=== PATIENT | female | born 1995 | race Hispanic/Latino ===

== ENCOUNTER 2020-09-12 12:33 | Outpatient (CLI) | payer OTHER ==
[2020-09-12 21:46] LABS: SARS-CoV-2 PCR by NAA Not Detected (NotDetected)
== END 2020-09-12 12:34 | disposition home or self-care (01) ==
LOC: CSHLAB 12:33
PROVIDERS: ATTEND Obstetrics & Gynecology
DX: Z20.822 Contact with and (suspected) exposure to COVID-19 (principal)
CPT/HCPCS: 87635; U0003; U0005

== ENCOUNTER 2020-09-13 19:30 | Inpatient (IN) | payer OTHER ==
[~2020-09-13 19:30] MED LIST: Acetaminophen 500 MG TAB PO PRN; Butorphanol Tartrate 1 MG/ML VIAL SLOW IVP PRN; Carboprost 250 MCG/ML AMP IM PRN; Diphenoxylate HCl/Atropine Tablet PO PRN; Docusate 100 MG CAP PO PRN; HYDROcodone/Acetaminophen 5/325 mg Tablet PO PRN; Ibuprofen 800 MG TAB PO PRN; Lidocaine 1% (PF) 30 ML VIAL SC PRN; Misoprostol 200 MCG TAB PR PRN; NS w/ Oxytocin 30 units 500 ML IV SCH; NS w/ Oxytocin 30 units 500 ML IVPB SCH; Ondansetron PF 4 MG/2 ML Vial IVP PRN; Promethazine HCl 25 MG/ML VIAL IM PRN; hydrALAZINE 20 MG/ML VIAL SLOW IVP PRN
[2020-09-13] MEDS: Lactated Ringer's 1,000 ML IV SCH (21:16)
[2020-09-13] MEDS: Misoprostol 100 MCG TAB VAG SCH (21:16)
[2020-09-13 21:18] VITALS: BMI 33.7
[2020-09-13 21:42] LABS: Hemoglobin 12.6 g/dL (12.0-15.5); Mean Corpuscular Hemoglobin 32.8 pg (27.0-33.0); Mean Corpuscular Volume 91.1 fl (81.6-98.3); Mean Platelet Volume 10.1 fl (7.4-10.4); Platelet Count 203 10x3/uL (150-450); RBC Distribution Width 13.8 % (11.5-14.5); Red Blood Cell (RBC) Count 3.84 10x6/uL (3.90-5.03); White Blood Cell (WBC) Count 10.1 10x3/uL (3.5-10.5)
[2020-09-13 22:14] LABS: Hep B Surf Ag Non-Reactive S/CO (NonReactive); Syphilis Antibody Nonreactive (Nonreactive); Syphilis Antibody Index 0.02 S/CO (<1.00 Non-Reactive)
[2020-09-13 22:43] LABS: HBSAg Index 0.17 S/CO (0-0.99)
[2020-09-14] MEDS: Misoprostol 100 MCG TAB VAG SCH (01:42)
[2020-09-14] MEDS ORDERED: Fentanyl 4 mcg/Bup 0.1% Cadd 100 ML ONE (10:48)
[2020-09-14] MEDS ORDERED: Lactated Ringer's 500 ML IV PRN (11:02)
[2020-09-14] MEDS ORDERED: Eucerin (Mineral Oil/Petrolatum,White) 30 gm Jar TOP PRN (11:02)
[2020-09-14] MEDS ORDERED: Promethazine HCl 25 MG/ML VIAL IM PRN ×2 (11:02→21:08)
[2020-09-14] MEDS ORDERED: diphenhydrAMINE 50 MG/ML VIAL IVP PRN (11:02)
[2020-09-14] MEDS ORDERED: Acetaminophen 325 MG TAB PO PRN (11:02)
[2020-09-14] MEDS ORDERED: Ondansetron PF 4 MG/2 ML Vial IVP PRN ×2 (11:02→21:08)
[2020-09-14] MEDS ORDERED: Naloxone HCl 0.4 mg/ml Vial IVP PRN ×2 (11:02)
[2020-09-14] MEDS ORDERED: ePHEDrine 50 MG/ML VIAL SLOW IVP PRN (11:02)
[2020-09-14] MEDS ORDERED: Communication Order-Pharmacy FS SCH (11:15)
[2020-09-14] MEDS ORDERED: Fentanyl 4 mcg/Bupivacaine 0.1% Cassette 100 ML EPIDURAL SCH (11:15)
[2020-09-14] MEDS: Lactated Ringer's 1,000 ML IV SCH (11:20)
[2020-09-14] MEDS: NS w/ Oxytocin 30 units 500 ML IV SCH ×2 (12:04→18:49)
[2020-09-14] MEDS ORDERED: HYDROcodone/Acetaminophen 5/325 mg Tablet PO PRN ×2 (21:08)
[2020-09-14] MEDS ORDERED: NS w/ Oxytocin 30 units 500 ML IV SCH (21:08)
[2020-09-14] MEDS ORDERED: Bisacodyl 10 MG SUPP PR PRN (21:08)
[2020-09-14] MEDS ORDERED: Lanolin Ointment 7 GM TUBE TOP PRN (21:08)
[2020-09-14] MEDS ORDERED: Benzocaine-Menthol 82.5 ML CAN TOP PRN (21:08)
[2020-09-14] MEDS ORDERED: Zolpidem Tartrate 5 MG TAB PO PRN (21:08)
[2020-09-14] MEDS ORDERED: diphenhydrAMINE 25 MG CAP PO PRN (21:08)
[2020-09-14] MEDS ORDERED: Misoprostol 200 MCG TAB VAG PRN (21:08)
[2020-09-14] MEDS ORDERED: Preparation H Ointment 28 GM TUBE PR PRN (21:08)
[2020-09-14] MEDS ORDERED: Milk Of Magnesia 30 ML UDCUP PO PRN (21:08)
[2020-09-14] MEDS ORDERED: hydrALAZINE 20 MG/ML VIAL SLOW IVP PRN (21:08)
[2020-09-14] MEDS ORDERED: Docusate Calcium (SURFAK) 240 MG CAP PO SCH (21:45)
[2020-09-14] MEDS: Ibuprofen 800 MG TAB PO SCH (22:00)
[2020-09-15] MEDS: Ibuprofen 800 MG TAB PO SCH ×2 (06:36→15:12)
[2020-09-15 07:55] LABS: Hemoglobin 13.1 g/dL (12.0-15.5); Mean Corpuscular HGB CONC 35.5 g/dL (32.0-36.0); Mean Corpuscular Hemoglobin 33.2 pg (27.0-33.0); Mean Corpuscular Volume 93.4 fl (81.6-98.3); Mean Platelet Volume 10.1 fl (7.4-10.4); Platelet Count 183 10x3/uL (150-450); RBC Distribution Width 13.9 % (11.5-14.5); Red Blood Cell (RBC) Count 3.95 10x6/uL (3.90-5.03); White Blood Cell (WBC) Count 11.3 10x3/uL (3.5-10.5)
[2020-09-15] MEDS: Ferrous Sulfate 325 MG TAB PO SCH ×2 (08:50→18:09)
[2020-09-15] MEDS ORDERED: Varicella virus, LIVE 0.5 ML VIAL SC ONE (09:00)
[2020-09-15] MEDS ORDERED: Measles/Mumps/Rubella 10 MCG/0.5 ML VIAL SC ONE (09:00)
[2020-09-15] MEDS ORDERED: Adacel (T-DAP) 0.5 ML SYRINGE IM ONE (09:00)
[2020-09-15] MEDS ORDERED: Docusate Calcium (SURFAK) 240 MG CAP PO SCH (09:00)
[2020-09-15] MEDS ORDERED: Sodium Chloride 0.9% (PF) 10 ML VIAL ONE (14:11)
[2020-09-15] MEDS ORDERED: Bupivacaine 0.25% HCL 30 ML VIAL ONE (14:11)
[2020-09-15 20:46] VITALS: BP 124/76; TEMP 98
== END 2020-09-15 20:20 | disposition home or self-care (01) | DRG 807 ==
LOC: CSHLD 20:05 → CSHPP 09-14 20:40
PROVIDERS: ADMIT Obstetrics & Gynecology; ATTEND Obstetrics & Gynecology
PROC: 10E0XZZ Delivery of Products of Conception, External Approach (ICD-10-PCS; principal; 2020-09-13)
PROC: 4A0HXCZ Measurement of Products of Conception, Cardiac Rate, External Approach (ICD-10-PCS; 2020-09-13)
DX: O13.4 Gestational [pregnancy-induced] hypertension without significant proteinuria, complicating childbirth (principal); Z37.0 Single live birth; Z3A.37 37 weeks gestation of pregnancy
CPT/HCPCS: 36415; 51702; 85027; 86780; 86850; 86900; 86901; 87340; 90715; J2590; S0020

== ENCOUNTER 2021-07-28 18:07 | Observation (INO) | payer OTHER ==
[2021-07-28 19:04] VITALS: BMI 34.4
[2021-07-28] MEDS ORDERED: hydrALAZINE 20 MG/ML VIAL SLOW IVP PRN (19:57)
[2021-07-28] MEDS ORDERED: Lactated Ringer's 1,000 ML IV SCH (20:00)
[2021-07-28] MEDS ORDERED: Acetaminophen 500 MG TAB PO SCH (20:00)
[2021-07-28 20:37] LABS: #Monocytes 0.6 10x3/uL (0.0-1.1); %Basophils 0.1 % (0.0-2.0); %Eosinophils 0.1 % (0.0-6.0); %Lymphocytes 8.8 % (18.0-47.0); %Monocytes 7.9 % (0.0-10.0); %Neutrophils 82.7 % (40.0-75.0); Hemoglobin 12.9 g/dL (12.0-15.5); Mean Corpuscular HGB CONC 35.4 g/dL (32.0-36.0); Mean Corpuscular Hemoglobin 32.7 pg (27.0-33.0); Mean Corpuscular Volume 92.4 fl (81.6-98.3); Mean Platelet Volume 9.5 fl (7.4-10.4); Platelet Count 167 10x3/uL (150-450); RBC Distribution Width 15.2 % (11.5-14.5); Red Blood Cell (RBC) Count 3.94 10x6/uL (3.90-5.03); White Blood Cell (WBC) Count 7.3 10x3/uL (3.5-10.5)
[2021-07-28 20:43] LABS: Bilirubin Neg (Negative); Blood, Urine Negative (Negative); Clarity Clear (Clear); Glucose, Urine (Dipstick) Normal (Negative); Ketone, Urine Negative (Negative); Leukocyte Negative (Negative); Nitrite Negative (Negative); Protein, Urine (Dipstick) Negative (Neg-Trace)
[2021-07-28 20:45] LABS: Urine Culture Reflex No No
[2021-07-28 20:48] LABS: Bacteria/HPF Rare-Few HPF (None Seen); RBC/HPF 0-3 HPF (0-3); Squamous Epithelial 0-3 HPF (0-3); WBC/HPF 0-3 HPF (0-3)
[2021-07-28 20:50] LABS: SARS-CoV-2 NAA Rapid Test Not Detected (NotDetected)
[2021-07-28 20:51] LABS: ALT (SGPT) 48 U/L (8-55); AST (SGOT) 42 U/L (5-34); Albumin 3.3 g/dL (3.5-5.0); Alkaline Phosphatase 132 U/L (40-110); Anion Gap 15 mmol/L (10-20); BUN (Urea Nitrogen) 5 mg/dL (7.0-18.7); Bilirubin, Total 1.2 mg/dL (0.2-1.2); Calc. Creatinine Clearance 196 mL/min (70-130); Carbon Dioxide 23 mmol/L (22-29); Chloride 102 mmol/L (98-107); Globulin 2.8 g/dL (2.4-3.5); Glucose 89 mg/dL (70-105); Potassium 3.6 mmol/L (3.5-5.1); Protein, Total 6.1 g/dL (6.0-8.3); Sodium 136 mmol/L (136-145)
[2021-07-28] MEDS ORDERED: Loperamide HCl 2 MG CAP PO PRN (21:41)
[2021-07-28] MEDS ORDERED: Ondansetron ODT 4 MG TAB PO PRN (21:41)
[2021-07-28] MEDS: Lactated Ringer's 1,000 ML IV SCH (23:25)
[2021-07-29] MEDS: Lactated Ringer's 1,000 ML IV SCH (06:11)
[2021-07-29 12:26] VITALS: BP 112/68; TEMP 98.7
== END 2021-07-29 12:55 | disposition home health service (06) ==
LOC: CSHLD/OP 18:07 → CSHANTE 22:52
PROVIDERS: ADMIT Student in an Organized Health Care Education/Training Program; ATTEND Student in an Organized Health Care Education/Training Program
DX: O99.613 Diseases of the digestive system complicating pregnancy, third trimester (principal); K52.9 Noninfective gastroenteritis and colitis, unspecified; O99.283 Endocrine, nutritional and metabolic diseases complicating pregnancy, third trimester; E86.0 Dehydration; O99.891 Other specified diseases and conditions complicating pregnancy; M54.9 Dorsalgia, unspecified; O36.8330 Maternal care for abnormalities of the fetal heart rate or rhythm, third trimester, not applicable or unspecified; Z3A.37 37 weeks gestation of pregnancy; Z79.82 Long term (current) use of aspirin; Z20.822 Contact with and (suspected) exposure to COVID-19
CPT/HCPCS: 80053; 81001; 85025; 87081; 87430; 99285; J7120

== ENCOUNTER 2021-08-03 05:30 | Inpatient (IN) | payer OTHER ==
[2021-08-03 06:11] VITALS: BMI 32.9
[2021-08-03] MEDS ORDERED: Bupivacaine 0.25% HCL 30 ML VIAL ONE (08:00)
[2021-08-03] MEDS ORDERED: hydrALAZINE 20 MG/ML VIAL SLOW IVP PRN ×2 (08:54→19:46)
[2021-08-03] MEDS ORDERED: Diphenoxylate HCl/Atropine Tablet PO PRN ×2 (08:54)
[2021-08-03] MEDS ORDERED: Ibuprofen 800 MG TAB PO PRN (08:54)
[2021-08-03] MEDS ORDERED: Promethazine HCl 25 MG/ML VIAL IM PRN ×2 (08:54→14:37)
[2021-08-03] MEDS ORDERED: Methylergonovine 0.2 MG/ML VIAL IM PRN (08:54)
[2021-08-03] MEDS ORDERED: Lidocaine 1% (PF) 30 ML VIAL SC PRN (08:54)
[2021-08-03] MEDS ORDERED: Carboprost 250 MCG/ML AMP IM PRN (08:54)
[2021-08-03] MEDS ORDERED: Misoprostol 200 MCG TAB PR PRN (08:54)
[2021-08-03] MEDS ORDERED: Ondansetron PF 4 MG/2 ML Vial IVP PRN ×3 (08:54→19:46)
[2021-08-03] MEDS ORDERED: HYDROcodone/Acetaminophen 5/325 mg Tablet PO PRN ×4 (08:54→19:46)
[2021-08-03] MEDS ORDERED: Butorphanol Tartrate 1 MG/ML VIAL SLOW IVP PRN (08:54)
[2021-08-03] MEDS ORDERED: NS w/ Oxytocin 30 units 500 ML IV SCH ×3 (09:00→19:46)
[2021-08-03 09:29] LABS: Mean Corpuscular HGB CONC 36.6 g/dL (32.0-36.0); Mean Corpuscular Hemoglobin 32.7 pg (27.0-33.0); Mean Corpuscular Volume 89.5 fl (81.6-98.3); Platelet Count 175 10x3/uL (150-450); RBC Distribution Width 14.1 % (11.5-14.5); Red Blood Cell (RBC) Count 4.28 10x6/uL (3.90-5.03); White Blood Cell (WBC) Count 5.8 10x3/uL (3.5-10.5)
[2021-08-03 09:47] LABS: Hep B Surf Ag Non-Reactive S/CO (NonReactive); Syphilis Antibody Nonreactive (Nonreactive); Syphilis Antibody Index 0.04 S/CO (<1.00 Non-Reactive)
[2021-08-03 09:58] LABS: HBSAg Index 0.21 S/CO (0-0.99)
[2021-08-03] MEDS ORDERED: Fentanyl 2 mcg/Bup 0.1% Cadd 100 ML ONE (14:03)
[2021-08-03] MEDS ORDERED: ePHEDrine Sulfate 50 MG/10 ML VIAL SLOW IVP PRN (14:37)
[2021-08-03] MEDS ORDERED: Lactated Ringer's 500 ML IV PRN (14:37)
[2021-08-03] MEDS ORDERED: Naloxone HCl 0.4 mg/ml Vial IVP PRN ×2 (14:37)
[2021-08-03] MEDS ORDERED: diphenhydrAMINE 50 MG/ML VIAL IVP PRN (14:37)
[2021-08-03] MEDS ORDERED: Acetaminophen 325 MG TAB PO PRN (14:37)
[2021-08-03] MEDS ORDERED: Hydrocerin (Eucerin) Cream 120 gm Jar TOP PRN (14:37)
[2021-08-03] MEDS ORDERED: Fentanyl 2 mcg/Bupivacaine 0.1% Cassette 100 ML EPIDURAL SCH (14:45)
[2021-08-03] MEDS ORDERED: Communication Order-Pharmacy FS SCH (14:45)
[2021-08-03] MEDS ORDERED: Lanolin Ointment 7 GM TUBE TOP PRN (19:46)
[2021-08-03] MEDS ORDERED: Boostrix 0.5 ML (Tdap) VIAL IM ONE (19:46)
[2021-08-03] MEDS ORDERED: Misoprostol 200 MCG TAB VAG PRN (19:46)
[2021-08-03] MEDS ORDERED: Zolpidem Tartrate 5 MG TAB PO PRN (19:46)
[2021-08-03] MEDS ORDERED: Milk Of Magnesia 30 ML UDCUP PO PRN (19:46)
[2021-08-03] MEDS ORDERED: Bisacodyl 10 MG SUPP PR PRN (19:46)
[2021-08-03] MEDS ORDERED: Benzocaine-Menthol 82.5 ML CAN TOP PRN (19:46)
[2021-08-03] MEDS ORDERED: Ferrous Sulfate 325 MG TAB PO SCH (20:00)
[2021-08-03] MEDS: Docusate 100 MG CAP PO SCH (20:46)
[2021-08-03] MEDS: Ibuprofen 800 MG TAB PO SCH (20:46)
[2021-08-04] MEDS: Ibuprofen 800 MG TAB PO SCH ×2 (05:23→13:58)
[2021-08-04] MEDS: Ferrous Sulfate 325 MG TAB PO SCH ×2 (08:48→17:16)
[2021-08-04] MEDS: Docusate 100 MG CAP PO SCH (08:53)
[2021-08-04] MEDS ORDERED: Prenatal Vitamin 1 TAB PO SCH (09:00)
[2021-08-04 15:26] VITALS: BP 112/68; TEMP 98.6
== END 2021-08-04 18:10 | disposition home or self-care (01) | DRG 805 ==
LOC: CSHLD 05:38 → CSHPP 19:42
PROVIDERS: ADMIT Obstetrics & Gynecology; ATTEND Obstetrics & Gynecology
PROC: 10E0XZZ Delivery of Products of Conception, External Approach (ICD-10-PCS; principal; 2021-08-03)
DX: O26.62 Liver and biliary tract disorders in childbirth (principal); K83.1 Obstruction of bile duct; Z37.0 Single live birth; Z3A.38 38 weeks gestation of pregnancy; Z90.49 Acquired absence of other specified parts of digestive tract
CPT/HCPCS: 51702; 85027; 86780; 86850; 86900; 86901; 87340; J2590; S0020